=== PATIENT | male | born 1980 | race Caucasian/White ===

== ENCOUNTER → 2020-08-12 | Outpatient (CLI) | payer OTHER ==
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
== END | disposition home or self-care (01) ==
LOC: RADMRIMAIN 20:35
PROVIDERS: ATTEND Physician Assistant Medical
DX: G43.909 Migraine, unspecified, not intractable, without status migrainosus (principal)
CPT/HCPCS: 70553; A9585

== ENCOUNTER → 2020-11-17 | Outpatient (CLI) | payer OTHER ==
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
== END | disposition home or self-care (01) ==
LOC: RADMRIMAIN 15:14
PROVIDERS: ATTEND Physician Assistant Medical
DX: G43.909 Migraine, unspecified, not intractable, without status migrainosus (principal); R20.0 Anesthesia of skin
CPT/HCPCS: 70553; A9585

== ENCOUNTER → 2023-08-19 | Outpatient (CLI) | payer OTHER ==
--- NOTE | 2023-08-20 09:13 | US ---
EXAMINATION TYPE: US groin LT DATE OF EXAM: 08/19/2023 COMPARISON: NONE CLINICAL INDICATION: Male, 42 years old with history of R10.32 LEFT LOWER QUAD PAIN; Left groin herni a Left groin: 2.0cm hernia IMPRESSION: Hernia as noted
== END | disposition home or self-care (01) ==
LOC: RADUSWWP 16:14
PROVIDERS: ATTEND Surgery Plastic and Reconstructive Surgery
DX: K46.9 Unspecified abdominal hernia without obstruction or gangrene (principal)

== ENCOUNTER 2023-09-23 07:18 | Day surgery (SDC) | payer OTHER ==
[~2023-09-23 07:18] MED LIST: HYDROmorphone 0.5 MG/0.5 ML SYRINGE IVP PRN; LIDOCAINE 1% (10MG/ML) FOR IV START INTRADERMA PRN; ONDANSETRON 4 MG/2 ML VIAL IVP PRN; droPERidol 5 MG/2 ML VIAL IVP PRN
[2023-09-23] MEDS: IV FLUID CONTINUATION 1,000 ML IV ONE (07:33)
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
--- NOTE | 2023-09-23 08:16 | P.HPADDEND ---
H&P Addendum H&P Addendum Date: 09/23/23 Additional studies obtained with ultrasound undergoing confirming left inguinal hernia. Images were independently reviewed.
[2023-09-23] MEDS: fentaNYL (PF) 50 MCG/ML 2 ML AMP IVP ONE (08:18)
[2023-09-23] MEDS: MIDAZOLAM 2 MG/2 ML VIAL IVP ONE (08:18)
[2023-09-23] MEDS: ONDANSETRON 4 MG/2 ML VIAL IVP ONE (08:36)
[2023-09-23] MEDS: LACTATED RINGERS 1,000 ML IV SCH (08:36)
[2023-09-23] MEDS: DEXAMETHASONE SOD PHOSPHATE 4 MG/ML 1 ML VIAL IV ONE (08:36)
[2023-09-23] MEDS: TAMSULOSIN 0.4 MG CAP.ER.24H PO STA (08:37)
[2023-09-23] MEDS: MELOXICAM 7.5 MG TAB PO PRN (08:37)
[2023-09-23] MEDS: HEPARIN SODIUM,PORCINE 5,000 UNIT/ML 1 ML VIAL SQ PRN (08:37)
[2023-09-23] MEDS: ACETAMINOPHEN TAB 500 MG TAB PO PRN (08:37)
--- NOTE | 2023-09-23 08:46 | P.ANPRN ---
Procedure Note - Anesthesia - Nerve Block Performed Bilateral Erector Spinae Single Time Out Performed: Yes Date of Procedure: 09/23/23 Procedure Start Time: : Procedure Stop Time: : Location of Patient: PreOp Indication: Acute Post-Operative Pain, Requested by Surgeon Sedation Type: Sedate with meaningful contact maintained Preparation: Sterile Prep Position: Prone Needle Types: Pajunk Needle Gauge: 21 Ultrasound used to visualize needle placement: Yes Ultrasound used to observe medication spread: Yes Injectate: 0.5% Ropivacaine (see comment for volume) (20 ml + 10 ml NS =4 mg Dexamethasone per side) Blood Aspirated: No Pain Paresthesia on Injection Noted: No Resistance on Injection: Normal Image Stored and Saved: Yes Events: Uneventful and Well Tolerated
[2023-09-23] MEDS ORDERED: SODIUM CHLORIDE 0.9% (PF) 10 ML VIAL ONE (08:55)
[2023-09-23] MEDS ORDERED: GLYCOPYRROLATE 0.2 MG/ML 2 ML VIAL ONE (08:55)
[2023-09-23] MEDS ORDERED: PROPOFOL 10 MG/ML 20 ML VIAL IV ONE (08:55)
[2023-09-23] MEDS ORDERED: fentaNYL (PF) 50 MCG/ML 2 ML AMP ONE (08:55)
[2023-09-23] MEDS ORDERED: ROCURONIUM 10 MG/ML (5 ML VIAL) IV ONE (08:55)
[2023-09-23] MEDS ORDERED: ROPIVACAINE 5 MG/ML 30 ML VIAL ONE (08:55)
[2023-09-23] MEDS ORDERED: LIDOCAINE 1% INJ 10MG/ML (20 ML MDV) ONE (08:55)
[2023-09-23] MEDS ORDERED: MIDAZOLAM 2 MG/2 ML VIAL ONE (08:55)
[2023-09-23] MEDS ORDERED: NEOSTIGMINE 1 MG/ML 10 ML VIAL ONE (08:55)
[2023-09-23] MEDS ORDERED: SUCCINYLCHOLINE CHLORIDE 200 MG/10 ML VIAL IV ONE (08:55)
[2023-09-23] MEDS ORDERED: DEXAMETHASONE SOD PHOSPHATE 4 MG/ML 1 ML VIAL ONE (08:55)
[2023-09-23] MEDS: LIDOCAINE 1%-EPI 1:100,000 20 ML VIAL SQ ONE (09:00)
[2023-09-23 09:01] LABS: Basophils % (A) 1 %; Eosinophils # (A) 0.1 k/uL (0-0.7); Eosinophils % (A) 2 %; HCT 45.8 % (39.0-53.0); Lymphocytes # (A) 2.3 k/uL (1.0-4.8); Lymphocytes % (A) 38 %; MCHC 32.8 g/dL (31.0-37.0); MCV 100.6 fL (80.0-100.0); Mean Platelet Volume 6.8; Monocytes # (A) 0.4 k/uL (0-1.0); Monocytes % (A) 7 %; Neutrophils # (A) 3.1 k/uL (1.3-7.7); Neutrophils % (A) 52 %; Platelet Count 283 k/uL (150-450); RBC 4.55 m/uL (4.30-5.90)
[2023-09-23 09:02] LABS: ALT 34 U/L (4-49); AST 30 U/L (17-59); African American GFR (CKD) 86 (>60 ml/min/1.73 sqM); Albumin 4.4 g/dL (3.5-5.0); Alkaline Phosphatase 44 U/L (38-126); Anion Gap 5 mmol/L; Blood Urea Nitrogen 16 mg/dL (9-20); Calcium 9.2 mg/dL (8.4-10.2); Carbon Dioxide 29 mmol/L (22-30); Chloride 104 mmol/L (98-107); Glucose 90 mg/dL (74-99); Non-African American GFR(CKD) 74 (>60 ml/min/1.73 sqM); Potassium 3.9 mmol/L (3.5-5.1); Sodium 138 mmol/L (137-145); Total Bilirubin 0.6 mg/dL (0.2-1.3); Total Protein 7.3 g/dL (6.3-8.2)
[2023-09-23] MEDS: LACTATED RINGERS 1,000 ML IV ONE (10:29)
[2023-09-23 11:01] VITALS: TEMP 97.2
[2023-09-23] MEDS ORDERED: HYDROcodone/APAP 7.5-325MG 1 EACH TAB PO PRN (11:27)
[2023-09-23] MEDS ORDERED: KETOROLAC 15 MG/ML 1 ML VIAL IVP PRN (11:27)
--- NOTE | 2023-09-23 11:30 | P.OP ---
Date of Procedure: 09/23/23 Description of Procedure: SURGEON: CARLI REYNOLDS MD PREOPERATIVE DIAGNOSES: 1. Initial left inguinal hernia POSTOPERATIVE DIAGNOSES: 1. Initial left inguinal hernia, direct with incarceration 2. Inguinal lipoma, subfascial, 4 x 3 cm OPERATION: 1. Robotic-assisted da Natalia Xi laparoscopic reduction and repair of initial incarcerated left direct inguinal hernia with mesh, 11.[address] 2. Resection of subfascial incarcerated left inguinal lipoma, 4 x 3 cm ANESTHESIA: General with local anesthetic ESTIMATED BLOOD LOSS: 5 mL. SPECIMENS: 1. Left inguinal lipoma COMPLICATIONS: None. FINDINGS: 1. Right inguinal lipoma, subfascial, 4 x 3 cm INDICATIONS: The patient is a 43-year-old gentleman who presents with symptomatic left inguinal hernia. Now presents for definitive surgical intervention. Laparoscopic versus open and robotic approaches were discussed. Benefits and risks including bleeding, infection, injury to the vas deferens as well as sterility and chronic groin pain were reviewed. Placement of mesh was also described. Informed consent was obtained. DESCRIPTION: In the preoperative area, the patient was marked with indelible marker along the inguinal hernia. The patient was brought to the operating room and initially laid in supine position. The abdomen had been prepped and draped in standard sterile fashion. Ioban draping was also placed. Prior to incision, a timeout protocol was confirmed with surgical team regarding patient's name including procedures to be performed and location along the right groin. Initial positioning for the robotic assisted ports were selected whereby 15 cm superior to the target anatomy, 0 degree 5 mm laparoscopic trocar entry was performed at the left upper quadrant. The abdomen was insufflated to 15 mmHg which he had tolerated well. Diagnostic laparoscopy demonstrated no injury to bowel, viscera or mesentery. Small graft inguinal hernia defect was found and undisturbed. Next, along the epigastrium, 8 mm robot trocar was placed. An 8-mm robotic trocar was placed under direct visualization at the right upper quadrant. An 8 mm port was placed at the left upper quadrant. All trocars were positioned between 10-cm apart from each other. An accessory trocar 12 mm placed along the right upper abdominal wall, lateral. The [employer] XI robot was primed, draped, prepared for docking along upper abdomen of the patient. The patient was positioned 21 steep Trendelenburg position I then went to the [employer] console. The assistant department manager was at bedside for exchange of the robot arms and equipment. The left direct inguinal hernia found. The left inguinal hernia defect was probed were large 4 x 3 centimeters subfascial lipoma. The contents was evaginated whereby the peritoneum was scored using Endo scissors with cautery. Once completely reduced into the abdominal cavity, the peritoneal sac of the hernia was stripped. The sac with subfascial lipoma was resected and then passed off for further pathological analysis. The size of the hernia defect was 2 cm with intraoperative films obtained. An inguinal lipoma, subfascial 4 cm was resected. Using a nonabsorbable 2-0 VLOC, the peritoneal defect of the left inguinal hernia site was closed using a pursestring suture. The defect was found to be completely closed with complete reduction of the left direct inguinal hernia. As an onlay, an 11.[address] mesh by [employer] was cut in half and entered into the abdominal cavity via the 8 mm trocar. The mesh was tacked to the pelvis using nonabsorbable 2-0 VLOC sutures. The robot was undocked from the patient's bedside. I then rescrubbed into the case. Neville Griffin with 0 Vicryl was used to close the right lateral upper quadrant 12 mm trocar incision. Insufflation was released from the abdominal cavity and all instruments were removed from the abdominal cavity. The rest of incisions were reapproximated using 4-0 Monocryl in a running subcuticular fashion. Incisions were cleansed using dilute hydrogen peroxide. Liquid glue was applied to the skin. At the end of the procedure, the needle, sponge and instrument counts had been verified correct by the surgical territory manager. The patient had tolerated the procedure well and was taken to the postanesthesia care unit in stable condition. Plan - Discharge Summary Discharge Rx Participant: No New Discharge Prescriptions: New Acetaminophen Tab [Tylenol Tab] 1,000 mg PO Q6HR PRN #30 tablet PRN Reason: Pain Simethicone [Gas-X] 125 mg PO AC-TID PRN #20 capsule PRN Reason: Pain Ibuprofen [Motrin] 600 mg PO Q8HR PRN #30 tab PRN Reason: Pain Discontinued Mgvhain-Orya-Zaoq [id number] [Excedrin] 1 tab PO DAILY PRN PRN Reason: Pain Ibuprofen [Advil] 200 - 400 mg PO Q6H PRN PRN Reason: Pain Discharge Medication List Acetaminophen Tab [Tylenol Tab] 1,000 mg PO Q6HR PRN #30 tablet 09/23/23 [Rx] Ibuprofen [Motrin] 600 mg PO Q8HR PRN #30 tab 09/23/23 [Rx] Simethicone [Gas-X] 125 mg PO AC-TID PRN #20 capsule 09/23/23 [Rx] Follow up Appointment(s)/Referral(s): Carli Reynolds MD [STAFF PHYSICIAN] - 09/28/23 6:00 pm Patient Instructions/Handouts: Laparoscopic Herniorrhaphy (IP) Activity/Diet/Wound Care/Special Instructions: TELEHEALTH - DR WILL CALL YOU BETWEEN 9 am to 8 pm NO LONG DRIVES OR AIRPLANE RIDES OVER 30 MINUTES FOR THE NEXT 2 WEEKS DUE TO HIGH RISK OF PULMONARY EMBOLISM/DVTs No lifting over 10 pounds in 2 weeks until Oct 06July shower. No bath tub soaks for two weeks until Oct 06 Diet as tolerated. Use Tylenol, simethicone and ibuprofen or Aleve scheduled for the next 24-48 hours for best pain relief. Use ice along incisions for today to prevent swelling. Discharge Disposition: HOME SELF-CARE
[2023-09-23 14:24] VITALS: RESP 18
[2023-09-23 15:16] VITALS: BP 140/82; PULSE 65
== END 2023-09-23 15:46 | disposition home or self-care (01) ==
LOC: OR 07:18
PROVIDERS: ATTEND Surgery Plastic and Reconstructive Surgery
DX: D17.6 Benign lipomatous neoplasm of spermatic cord (principal); E78.5 Hyperlipidemia, unspecified; T75.3XXA Motion sickness, initial encounter; Z86.59 Personal history of other mental and behavioral disorders; Z79.82 Long term (current) use of aspirin; Z79.1 Long term (current) use of non-steroidal anti-inflammatories (NSAID)
CPT/HCPCS: 49650; S2900; 64999; 80053; 85025; 88304